=== PATIENT | male | born 1965 | race Caucasian/White ===

== ENCOUNTER 2024-10-29 09:30 | Emergency (ER) | payer SELFPAY ==
[~2024-10-29] VITALS: Ht 175.3 cm; Wt 95.0 kg
[2024-10-29 09:55] VITALS: TEMP 36.5; O2SAT 97
[2024-10-29] MEDS: IBUPROFEN 400MG TABLET PO ONE (11:04)
[2024-10-29] MEDS ORDERED: ACET-2708 MT (14:30)
[2024-10-29] MEDS ORDERED: AMLO5TAB88 MT (15:04)
[2024-10-29 15:12] VITALS: BP 203/115; PULSE 61; RESP 20; O2SAT 98
[2024-10-29] MEDS ORDERED: AMLODIPINE 5MG TABLET PO ONE (15:15)
== END 2024-10-29 15:15 | disposition home or self-care (01) ==
LOC: ER 09:30
DX: M25.561 Pain in right knee (principal); M25.571 Pain in right ankle and joints of right foot; I10 Essential (primary) hypertension; W01.0XXA Fall on same level from slipping, tripping and stumbling without subsequent striking against object, initial encounter; Y93.01 Activity, walking, marching and hiking; Y92.89 Other specified places as the place of occurrence of the external cause; Y99.8 Other external cause status
CPT/HCPCS: 99284; 73562; 73610; A6449